=== PATIENT | female | born 1950 ===

== ENCOUNTER 2017-10-03 14:03 | Inpatient (IN) | payer OTHER ==
[~2017-10-03] VITALS: Ht 152.4 cm; Wt 68.0 kg
[2017-10-03] MEDS ORDERED: BUSP15TA3 PO (14:25)
[2017-10-03] MEDS ORDERED: BUPR-96 PO (14:25)
[2017-10-03] MEDS ORDERED: METOPROLOL (14:25)
[2017-10-03] MEDS ORDERED: MIRT15TA PO (14:25)
[2017-10-03 14:57] LABS: BASOPHILS # (AUTO) 0.1 K/uL (0.0-8.0); BASOPHILS % (AUTO) 1.1 % (0.0-2.0); EOSINOPHILS % (AUTO) 0.1 % (0.0-7.0); HEMATOCRIT 41.9 % (31.2-41.9); HEMOGLOBIN 14.3 g/dL (10.9-14.3); LYMPHOCYTES # (AUTO) 2.2 K/uL (20.0-40.0); LYMPHOCYTES % (AUTO) 28.6 % (20.5-51.5); MEAN CORPUSCULAR HGB CONC 34 g/dL (32.3-35.6); MEAN CORPUSCULAR VOLUME 96.3 fL (75.5-95.3); MONOCYTES # (AUTO) 0.4 K/uL (2.0-10.0); MONOCYTES % (AUTO) 5.3 % (0.0-11.0); NEUTROPHILS % (AUTO) 64.9 % (38.5-71.5); PLATELET COUNT (AUTO) 269 K/uL (179-408); RED BLOOD CELL COUNT(AUTO) 4.35 MIL/uL (3.63-4.92); WHITE BLOOD COUNT (AUTO) 7.7 K/uL (3.8-11.8)
[2017-10-03 15:00] LABS: *BILIRUBIN,URIN NEGATIVE (NEGATIVE); *BLOOD, URINE Trace-intact (NEGATIVE); *CLARITY,URINE SLIGHTLY CLOUDY (CLEAR); *COLOR,URINE DARK YELLOW (YELLOW); *KETONES,URINE TRACE (NEGATIVE); *PROTEIN,URINE 1+ (NEGATIVE); *UROBILINOGEN,URINE 0.2 E.U./dl (NORMAL); LEUKOCYTE ESTERASE ,URINE 1+ (NEGATIVE); NITRITE, URINE NEGATIVE (NEGATIVE); UGLUCOSE NEGATIVE (NEGATIVE)
[2017-10-03 15:07] LABS: CARBON DIOXIDE 26 mmol/L (21-32); CHLORIDE 103 mmol/L (98-107); CREATININE 1.2 mg/dL (0.6-1.3); GLUCOSE 113 mg/dL (74-106); POTASSIUM 4.4 mmol/L (3.5-5.1); UREA NITROGEN, BLOOD 18 mg/dL (7-18)
[2017-10-03 15:09] LABS: RBC,URINE 0-3 /HPF (0-3)
[2017-10-03 15:10] LABS: BACTERIA,URINE NONE SEEN /HPF (NONE SEEN); SQUAMOUS EPITHELIAL CELL,UR FEW /HPF (NONE SEEN)
[2017-10-03 15:10] LABS: ETHANOL < 3 MG/DL (0-0)
[2017-10-03 15:11] LABS: CALCIUM OXALATE CRYSTALS,UR MODERATE /HPF (NONE SEEN); MUCUS,URINE FEW /LPF (0-FEW)
[2017-10-03 15:13] LABS: ALANINE AMINOTRANSFERASE 19 U/L (14-59); ALKALINE PHOSPHATASE 95 U/L (50-136); ASPARTATE AMINOTRANSFERASE 16 U/L (15-37); BILIRUBIN,DIRECT 0.1 mg/dL (0.0-0.2); BILIRUBIN,TOTAL 0.5 mg/dL (0.2-1.0); TOTAL PROTEIN, SERUM 7.9 g/dL (6.4-8.2)
[2017-10-03 15:18] LABS: *AMPHETAMINE, URINE NEGATIVE (NEGATIVE); *BARBITURATE, URINE POSITIVE (NEGATIVE); *CANNABINOID, URINE NEGATIVE (NEGATIVE); *COCCAINE, URINE NEGATIVE (NEGATIVE); *OPIATE, URINE NEGATIVE (NEGATIVE); *PHENCYCLIDINE SCREEN,URINE NEGATIVE (NEGATIVE)
[2017-10-03 15:33] LABS: THYROID STIMULATING HORMONE 3.589 mIU/mL (0.358-3.740)
[2017-10-03] MEDS ORDERED: TEMAZEPAM 7.5 MG CAPSULE PO PRN (17:15)
[2017-10-03] MEDS ORDERED: MAGNESIUM HYDROXIDE 30 ML LIQUID UDC PO PRN (17:15)
[2017-10-03] MEDS ORDERED: MAG HYDROX/AL HYDROX/SIMETH 30 ML LIQUID UDC PO PRN (17:15)
[2017-10-03 19:00] VITALS: BP 147/81
[2017-10-03] MEDS: METOPROLOL TARTRATE 25 MG TABLET PO SCH (20:27)
[2017-10-03] MEDS: LORAZEPAM 0.5 MG TABLET PO PRN (20:39)
[2017-10-03 20:43] VITALS: BP 150/64
[2017-10-03] MEDS: VERAPAMIL 40 MG TABLET PO SCH (20:46)
[2017-10-04 07:30] VITALS: BP 106/55
[2017-10-04] MEDS: METOPROLOL TARTRATE 25 MG TABLET PO SCH ×2 (08:43→20:23)
[2017-10-04] MEDS: CEPHALEXIN MONOHYDRATE 500 MG CAPSULE PO SCH ×2 (11:53→20:20)
[2017-10-04] MEDS: LORAZEPAM 0.5 MG TABLET PO PRN (12:40)
[2017-10-04] MEDS: busPIRone 10 MG TABLET PO SCH ×2 (13:34→16:39)
[2017-10-04] MEDS: buPROPion XL 150 MG TAB.SR.24H PO SCH (13:34)
[2017-10-04] MEDS: FLUOXETINE HCL 20 MG CAPSULE PO SCH (13:34)
[2017-10-04] MEDS: HYDROCORTISONE 1% OINT 28.35 GM TUBE TOP SCH ×2 (15:00→20:26)
[2017-10-04] MEDS ORDERED: diphenhydrAMINE 1% CREAM 28.3 GM TUBE TP PRN (15:00)
[2017-10-04 15:50] VITALS: BP 94/59
[2017-10-04] MEDS: LORATADINE 10 MG TABLET PO SCH (17:32)
[2017-10-04] MEDS: ASPIRIN EC 81 MG TABLET.DR PO SCH (19:12)
[2017-10-04 20:00] VITALS: BP 104/68
[2017-10-04] MEDS: ATORVASTATIN 10 MG TABLET PO SCH (20:20)
[2017-10-04] MEDS: VERAPAMIL 40 MG TABLET PO SCH (20:23)
[2017-10-04] MEDS ORDERED: MIRTAZAPINE 15 MG TABLET PO SCH (21:00)
[2017-10-05 07:30] VITALS: BP 95/60
[2017-10-05] MEDS: buPROPion XL 150 MG TAB.SR.24H PO SCH (08:34)
[2017-10-05] MEDS: ASPIRIN EC 81 MG TABLET.DR PO SCH (08:34)
[2017-10-05] MEDS: CEPHALEXIN MONOHYDRATE 500 MG CAPSULE PO SCH (08:35)
[2017-10-05] MEDS: METOPROLOL TARTRATE 25 MG TABLET PO SCH (08:35)
[2017-10-05] MEDS: LORATADINE 10 MG TABLET PO SCH (08:35)
[2017-10-05] MEDS: busPIRone 10 MG TABLET PO SCH ×3 (08:36→16:35)
[2017-10-05] MEDS: HYDROCORTISONE 1% OINT 28.35 GM TUBE TOP SCH ×2 (08:36→20:54)
[2017-10-05] MEDS: FLUOXETINE HCL 20 MG CAPSULE PO SCH (12:03)
[2017-10-05 15:05] VITALS: BP 125/82
[2017-10-05] MEDS ORDERED: LORAZEPAM 0.5 MG TABLET PO PRN ×2 (16:30→22:30)
[2017-10-05 20:00] VITALS: BP 125/68
[2017-10-05] MEDS: VERAPAMIL 40 MG TABLET PO SCH (20:55)
[2017-10-05] MEDS: MIRTAZAPINE 15 MG TABLET PO SCH (20:56)
[2017-10-05] MEDS: ATORVASTATIN 10 MG TABLET PO SCH (20:56)
[2017-10-06 07:30] VITALS: BP 108/58
[2017-10-06] MEDS: busPIRone 10 MG TABLET PO SCH ×3 (08:42→16:54)
[2017-10-06] MEDS: ASPIRIN EC 81 MG TABLET.DR PO SCH (08:42)
[2017-10-06] MEDS: LORATADINE 10 MG TABLET PO SCH (08:44)
[2017-10-06] MEDS: buPROPion XL 150 MG TAB.SR.24H PO SCH (08:44)
[2017-10-06] MEDS: HYDROCORTISONE 1% OINT 28.35 GM TUBE TOP SCH ×2 (09:00→20:59)
[2017-10-06] MEDS: FLUOXETINE HCL 20 MG CAPSULE PO SCH (12:15)
[2017-10-06 14:35] LABS: BASOPHILS # (AUTO) 0.1 K/uL (0.0-8.0); BASOPHILS % (AUTO) 1.3 % (0.0-2.0); EOSINOPHILS % (AUTO) 0.4 % (0.0-7.0); HEMATOCRIT 40.4 % (31.2-41.9); LYMPHOCYTES # (AUTO) 2.2 K/uL (20.0-40.0); LYMPHOCYTES % (AUTO) 29.7 % (20.5-51.5); MEAN CORPUSCULAR HEMOGLOBIN 33.3 uug (24.7-32.8); MEAN CORPUSCULAR HGB CONC 35 g/dL (32.3-35.6); MEAN CORPUSCULAR VOLUME 95.9 fL (75.5-95.3); MONOCYTES # (AUTO) 0.5 K/uL (2.0-10.0); MONOCYTES % (AUTO) 7.1 % (0.0-11.0); NEUTROPHILS # (AUTO) 4.5 K/uL (1.8-8.9); NEUTROPHILS % (AUTO) 61.5 % (38.5-71.5); PLATELET COUNT (AUTO) 273 K/uL (179-408); RED BLOOD CELL COUNT(AUTO) 4.21 MIL/uL (3.63-4.92); WHITE BLOOD COUNT (AUTO) 7.3 K/uL (3.8-11.8)
[2017-10-06 15:22] LABS: CREATININE 1.3 mg/dL (0.6-1.3); MAGNESIUM 1.9 mg/dL (1.8-2.4); PHOSPHOROUS 3.4 mg/dL (2.5-4.9); POTASSIUM 4.3 mmol/L (3.5-5.1)
[2017-10-06 16:40] VITALS: BP 136/66
[2017-10-06 19:30] VITALS: BP 131/73
[2017-10-06] MEDS: CODEINE/BUTA/APAP/CAFF 1 CAP CAPSULE PO PRN (19:49)
[2017-10-06] MEDS: ATORVASTATIN 10 MG TABLET PO SCH (20:53)
[2017-10-06] MEDS: MIRTAZAPINE 15 MG TABLET PO SCH (20:53)
[2017-10-06] MEDS: VERAPAMIL 40 MG TABLET PO SCH (20:54)
[2017-10-07 07:30] VITALS: BP 111/75
[2017-10-07] MEDS: LORATADINE 10 MG TABLET PO SCH (08:17)
[2017-10-07] MEDS: busPIRone 10 MG TABLET PO SCH ×3 (08:17→16:34)
[2017-10-07] MEDS: buPROPion XL 150 MG TAB.SR.24H PO SCH (08:17)
[2017-10-07] MEDS: HYDROCORTISONE 1% OINT 28.35 GM TUBE TOP SCH ×2 (08:19→20:43)
[2017-10-07] MEDS: FLUOXETINE HCL 20 MG CAPSULE PO SCH (12:10)
[2017-10-07 16:34] VITALS: BP 125/72
[2017-10-07 19:38] VITALS: BP 121/75
[2017-10-07] MEDS: MIRTAZAPINE 15 MG TABLET PO SCH (21:44)
[2017-10-07] MEDS: ATORVASTATIN 10 MG TABLET PO SCH (21:44)
[2017-10-07] MEDS: VERAPAMIL 40 MG TABLET PO SCH (21:45)
[2017-10-08] MEDS: CODEINE/BUTA/APAP/CAFF 1 CAP CAPSULE PO PRN ×3 (05:42→21:26)
[2017-10-08 07:30] VITALS: BP 134/84
[2017-10-08] MEDS: buPROPion XL 150 MG TAB.SR.24H PO SCH (08:19)
[2017-10-08] MEDS: busPIRone 10 MG TABLET PO SCH ×3 (08:19→17:41)
[2017-10-08] MEDS: LORATADINE 10 MG TABLET PO SCH (08:19)
[2017-10-08] MEDS: HYDROCORTISONE 1% OINT 28.35 GM TUBE TOP SCH ×2 (08:24→21:19)
[2017-10-08] MEDS: FLUOXETINE HCL 20 MG CAPSULE PO SCH (13:25)
[2017-10-08 16:18] VITALS: BP 133/64
[2017-10-08 20:09] VITALS: BP 146/68
[2017-10-08] MEDS: ATORVASTATIN 10 MG TABLET PO SCH (21:19)
[2017-10-08] MEDS: MIRTAZAPINE 15 MG TABLET PO SCH (21:19)
[2017-10-08] MEDS: VERAPAMIL 40 MG TABLET PO SCH (21:19)
[2017-10-09 07:30] VITALS: BP 136/71
[2017-10-09] MEDS: HYDROCORTISONE 1% OINT 28.35 GM TUBE TOP SCH (09:00)
[2017-10-09] MEDS: buPROPion XL 150 MG TAB.SR.24H PO SCH (09:10)
[2017-10-09] MEDS: LORATADINE 10 MG TABLET PO SCH (09:10)
[2017-10-09] MEDS: busPIRone 10 MG TABLET PO SCH ×2 (09:11→12:28)
[2017-10-09] MEDS: FLUOXETINE HCL 20 MG CAPSULE PO SCH (12:28)
== END 2017-10-09 14:05 | disposition home or self-care (01) | DRG 885 ==
LOC: ER 14:08 → GPS 16:25
PROVIDERS: ADMIT Psychiatry & Neurology Psychosomatic Medicine; ATTEND Internal Medicine
DX: F33.3 Major depressive disorder, recurrent, severe with psychotic symptoms (principal); N39.0 Urinary tract infection, site not specified; F41.0 Panic disorder [episodic paroxysmal anxiety]; Z88.6 Allergy status to analgesic agent; Z91.041 Radiographic dye allergy status; G43.909 Migraine, unspecified, not intractable, without status migrainosus; Z87.891 Personal history of nicotine dependence; G89.29 Other chronic pain; G58.9 Mononeuropathy, unspecified; E78.5 Hyperlipidemia, unspecified; E67.8 Other specified hyperalimentation; E66.3 Overweight; Z68.29 Body mass index [BMI] 29.0-29.9, adult; Z87.19 Personal history of other diseases of the digestive system; I11.9 Hypertensive heart disease without heart failure; I51.9 Heart disease, unspecified; J30.9 Allergic rhinitis, unspecified; Z86.39 Personal history of other endocrine, nutritional and metabolic disease; M54.2 Cervicalgia; R21 Rash and other nonspecific skin eruption
CPT/HCPCS: 36415; 70030-TC; 71045; 80307; 83735; 84100; 84443; 85025; 87086; 93005; 93307; A4663; G0480

== ENCOUNTER 2018-10-30 15:16 | Inpatient (IN) | payer OTHER ==
[~2018-10-30] VITALS: Ht 152.4 cm; Wt 68.0 kg
[~2018-10-30 15:16] MED LIST: BUPR-96 PO; BUSP15TA3 PO; METOPROLOL; MIRT15TA PO
[2018-10-30] MEDS ORDERED: VERA180C2 PO (15:58)
[2018-10-30] MEDS ORDERED: METOPROLOL (15:58)
[2018-10-30] MEDS ORDERED: CODE1CAP24 PO (15:58)
[2018-10-30] MEDS ORDERED: SUMA100T PO (15:58)
[2018-10-30] MEDS ORDERED: FLUO20CA36 PO (15:58)
[2018-10-30 17:15] LABS: BASOPHILS # (AUTO) 0.1 K/uL (0.0-8.0); BASOPHILS % (AUTO) 1.3 % (0.0-2.0); EOSINOPHILS % (AUTO) 0.4 % (0.0-7.0); HEMOGLOBIN 13.5 g/dL (10.9-14.3); LYMPHOCYTES # (AUTO) 2.2 K/uL (20.0-40.0); LYMPHOCYTES % (AUTO) 31.1 % (20.5-51.5); MEAN CORPUSCULAR HEMOGLOBIN 32.7 uug (24.7-32.8); MEAN CORPUSCULAR HGB CONC 34 g/dL (32.3-35.6); MEAN CORPUSCULAR VOLUME 97.1 fL (75.5-95.3); MONOCYTES # (AUTO) 0.5 K/uL (2.0-10.0); NEUTROPHILS # (AUTO) 4.2 K/uL (1.8-8.9); NEUTROPHILS % (AUTO) 60.2 % (38.5-71.5); PLATELET COUNT (AUTO) 235 K/uL (179-408); RED BLOOD CELL COUNT(AUTO) 4.12 MIL/uL (3.63-4.92)
[2018-10-30 17:23] LABS: *BILIRUBIN,URIN NEGATIVE (NEGATIVE); *BLOOD, URINE 1+ (NEGATIVE); *CLARITY,URINE CLEAR (CLEAR); *COLOR,URINE LIGHT YELLOW (YELLOW); *KETONES,URINE NEGATIVE (NEGATIVE); *UROBILINOGEN,URINE 0.2 E.U./dl (NORMAL); LEUKOCYTE ESTERASE ,URINE NEGATIVE (NEGATIVE); NITRITE, URINE NEGATIVE (NEGATIVE); PH,URINE 6.5 (5.0-8.0); UGLUCOSE NEGATIVE (NEGATIVE)
[2018-10-30 17:24] LABS: CARBON DIOXIDE 28 mmol/L (21-32); CHLORIDE 104 mmol/L (98-107); CREATININE 1.1 mg/dL (0.6-1.3); GLUCOSE 112 mg/dL (74-106); POTASSIUM 4.1 mmol/L (3.5-5.1); UREA NITROGEN, BLOOD 18 mg/dL (7-18)
[2018-10-30 17:38] LABS: ALANINE AMINOTRANSFERASE 17 U/L (14-59); ALKALINE PHOSPHATASE 83 U/L (50-136); ASPARTATE AMINOTRANSFERASE 23 U/L (15-37); BILIRUBIN,DIRECT 0.1 mg/dL (0.0-0.2); BILIRUBIN,TOTAL 0.2 mg/dL (0.2-1.0); TOTAL PROTEIN, SERUM 7.8 g/dL (6.4-8.2)
[2018-10-30 17:39] LABS: *AMPHETAMINE, URINE NEGATIVE (NEGATIVE); *BARBITURATE, URINE POSITIVE (NEGATIVE); *CANNABINOID, URINE NEGATIVE (NEGATIVE); *COCCAINE, URINE NEGATIVE (NEGATIVE); *OPIATE, URINE NEGATIVE (NEGATIVE); *PHENCYCLIDINE SCREEN,URINE NEGATIVE (NEGATIVE)
[2018-10-30 17:39] LABS: ACETAMINOPHEN < 2.0 ug/mL (10-30)
[2018-10-30 17:40] LABS: ETHANOL < 3 MG/DL (0-0)
[2018-10-30 17:45] LABS: SQUAMOUS EPITHELIAL CELL,UR FEW /HPF (NONE SEEN); WBC,URINE 0-3 /HPF (0-3)
[2018-10-30 18:01] LABS: THYROID STIMULATING HORMONE 1.555 mIU/mL (0.358-3.740)
--- NOTE | 2018-10-30 21:00 | NUR ---
HAND OFF AND SBAR GIVEN TO CRISSY MERCADO PT WILL BE ADMITTED TO [facility] ADMISSION FOR DEPRESSION STATES: HER MEDS ARE NOT WORKING UNDER DR GARCIA/GUNJAN PT NAD, SITTING ON ROOM CALM AND COMPLIANT AOX3
--- NOTE | 2018-10-30 21:16 | NUR ---
Patient is in the room, arrived in a wheelchair.
--- NOTE | 2018-10-30 21:17 | NUR ---
PT WAS TRANSPORTED VIA WHEELCHAIR ACCOMPANIED BY ER WASTEWATER TREATMENT PLANT INSTRUCTOR DENIES SI/HI AT THIS TIME, PT NAD PT BELONGINGS CONFIRMED AND SIGNED BY PT AND RN COPY ON CHART
[2018-10-30 21:27] VITALS: BP 136/56
[2018-10-30] MEDS ORDERED: TEMAZEPAM 7.5 MG CAPSULE PO PRN (21:30)
[2018-10-30] MEDS ORDERED: MAGNESIUM HYDROXIDE 30 ML LIQUID UDC PO PRN (21:30)
[2018-10-30] MEDS ORDERED: MAG HYDROX/AL HYDROX/SIMETH 30 ML LIQUID UDC PO PRN (21:30)
--- NOTE | 2018-10-31 | NUR ---
RECD PT IN BED, APPEARS ANXIOUS, REQUESTING MEDICATION TO CALM HER AND BE ABLE TO REST AND SLEEP, ATIVAN 1 MG GIVEN ORDERED. NEEDS ATTENDED TO. SAFETY PRECAUTIONS OBSERVED AND MONITORED. FREQUENT VISUAL CHECKS AND MONITORING DONE. HALFWAY ASSESSMENT COMPLETED.
[2018-10-31] MEDS: LORAZEPAM 1 MG TABLET PO PRN ×2 (00:14→17:41)
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
--- NOTE | 2018-10-31 02:00 | NUR ---
RESTING QUIETLY, NO VOICED COMPLAINTS, KEPT WARM AND COMFORTABLE.
--- NOTE | 2018-10-31 04:00 | NUR ---
UP TO BR, VOIDED FREELY WELL. WENT BACK TO SLEEP. NOTHING UNUSUAL NOTED.PT"S VALUABLES INVENTORIED , WILL BE PLACED IN THE SAFE, DOCUMENTED PROPERLY.
[2018-10-31] MEDS ORDERED: CODEINE PO PRN (07:45)
[2018-10-31] MEDS ORDERED: [UNRECOGNIZED DRUG - OTHER] PO PRN (07:45)
[2018-10-31] MEDS ORDERED: ACETAMIN PO PRN (07:45)
[2018-10-31] MEDS ORDERED: SUMATRIPTAN SUCCINATE 100 MG PO SCH (07:45)
[2018-10-31] MEDS ORDERED: BUTALBIT PO PRN (07:45)
[2018-10-31] MEDS ORDERED: CAFF PO PRN (07:45)
[2018-10-31 08:00] VITALS: BP 117/52
[2018-10-31] MEDS ORDERED: MAGNESIUM CITRATE 296 ML BOTTLE PO ONE (09:00)
[2018-10-31] MEDS ORDERED: VERAPAMIL HCL 180 MG PO SCH (09:00)
[2018-10-31] MEDS ORDERED: METOPROLOL TARTRATE 25 MG TABLET PO SCH (09:00)
[2018-10-31] MEDS: ASPIRIN 81 MG TAB.CHEW GT SCH (09:20)
[2018-10-31] MEDS: CHOLECALCIFEROL 1,000 UNIT TABLET PO SCH (09:20)
[2018-10-31] MEDS: CYANOCOBALAMIN 1,000 MCG TABLET PO SCH (09:20)
[2018-10-31] MEDS: SUMATRIPTAN SUCCINATE 50 MG TABLET PO PRN (09:31)
[2018-10-31] MEDS: METOPROLOL SUCCINATE XL 25 MG TAB.SR.24H PO SCH (09:38)
--- NOTE | 2018-10-31 09:39 | NUR ---
PATIENT AO 4, ON RA , NO DISTRESS SPOKE WITH THIS AM AND SHOWED HER LIST OF HOME MEDS THAT PATIENT FOUND. DR RG TOLD ME WHAT MEDICATIONS TO CONT. COPY OF HER HOME MED LIST IS IN THE CHART.
[2018-10-31 12:13] VITALS: BP 117/52
[2018-10-31 15:56] VITALS: BP 129/63
[2018-10-31] MEDS: VERAPAMIL 80 MG TABLET PO SCH (20:34)
[2018-10-31] MEDS: NIACIN 500 MG TABLET PO SCH (20:35)
[2018-10-31 20:46] VITALS: BP 103/57
[2018-10-31] MEDS ORDERED: NIACIN 500 MG TABLET.SA PO SCH (21:00)
[2018-10-31] MEDS ORDERED: VERAPAMIL HCL PO SCH (21:00)
[2018-11-01] MEDS: SUMATRIPTAN SUCCINATE 50 MG TABLET PO PRN (06:28)
--- NOTE | 2018-11-01 06:52 | NUR ---
PATIENT SLEPT ABOUT 7 HRS DURING THE SHIFT. NO BEHAVIORAL ISSUES NOTED.NO SIGNS OF SUICIDAL IDEATION NOTED. IMITREX ADMINISTERED ON C/O MIGRAINE
[2018-11-01 07:30] VITALS: BP 135/56
[2018-11-01] MEDS: ASPIRIN 81 MG TAB.CHEW GT SCH (09:06)
[2018-11-01] MEDS: CYANOCOBALAMIN 1,000 MCG TABLET PO SCH (09:06)
[2018-11-01] MEDS: CHOLECALCIFEROL 1,000 UNIT TABLET PO SCH (09:06)
[2018-11-01] MEDS: METOPROLOL SUCCINATE XL 25 MG TAB.SR.24H PO SCH (09:07)
[2018-11-01] MEDS: FLUOXETINE HCL 20 MG CAPSULE PO SCH (09:07)
[2018-11-01] MEDS: CLONAZEPAM 0.5 MG TABLET PO SCH ×3 (09:11→16:41)
[2018-11-01 17:00] VITALS: BP 108/48
[2018-11-01 20:00] VITALS: BP 122/66
[2018-11-01] MEDS: VERAPAMIL 80 MG TABLET PO SCH (20:16)
[2018-11-01] MEDS: NIACIN 500 MG TABLET PO SCH (20:16)
[2018-11-02 07:30] VITALS: BP 97/50
[2018-11-02] MEDS: SUMATRIPTAN SUCCINATE 50 MG TABLET PO PRN (08:47)
[2018-11-02] MEDS: CHOLECALCIFEROL 1,000 UNIT TABLET PO SCH (08:48)
[2018-11-02] MEDS: ASPIRIN 81 MG TAB.CHEW GT SCH (08:48)
[2018-11-02] MEDS: CLONAZEPAM 0.5 MG TABLET PO SCH ×4 (08:48→21:06)
[2018-11-02] MEDS: CYANOCOBALAMIN 1,000 MCG TABLET PO SCH (08:48)
[2018-11-02] MEDS: FLUOXETINE HCL 20 MG CAPSULE PO SCH (08:49)
[2018-11-02] MEDS: METOPROLOL SUCCINATE XL 25 MG TAB.SR.24H PO SCH (08:50)
--- NOTE | 2018-11-02 11:19 | NUR ---
UR Note: Clay Processing Factory Worker faxed clinical information to assigned Development Technician Nathaniel vergara at [facility] ( Ext [phone]; ). Clay Processing Factory Worker updated Development Technician provided verbal clinicals. Authorization no. provided: [id number]. Next utilization review scheduled for 11/03/18.
--- NOTE | 2018-11-02 15:11 | NUR ---
Discharge Note: Patient is a 68 year old female who currently resides at home [[address] [place] [address]; Ph. [phone]; ]. Per patient, she would like to return home upon discharge. Patient's main support is her friend Anel Godoy [[phone]] who will be able to help patient upon discharge. Sales And Leasing Agent will continue to meet with patient, and collaborate with patient and MD on a safe and proper discharge plan.
[2018-11-02 16:17] VITALS: BP 102/66
[2018-11-02 20:00] VITALS: BP 142/73
[2018-11-02] MEDS: VERAPAMIL 80 MG TABLET PO SCH (20:21)
[2018-11-02] MEDS: NIACIN 500 MG TABLET PO SCH (20:21)
[2018-11-03] MEDS ORDERED: TEMAZEPAM 7.5 MG CAPSULE PO PRN (07:45)
[2018-11-03 07:52] VITALS: BP 112/52
[2018-11-03] MEDS: FLUOXETINE HCL 20 MG CAPSULE PO SCH ×3 (09:00→18:55)
[2018-11-03] MEDS: CHOLECALCIFEROL 1,000 UNIT TABLET PO SCH ×2 (09:00→18:57)
[2018-11-03] MEDS: ASPIRIN 81 MG TAB.CHEW PO SCH ×2 (09:00→18:57)
[2018-11-03] MEDS: CYANOCOBALAMIN 1,000 MCG TABLET PO SCH ×2 (09:00→18:57)
[2018-11-03] MEDS: METOPROLOL SUCCINATE XL 25 MG TAB.SR.24H PO SCH (09:00)
[2018-11-03 15:10] VITALS: BP 116/60
--- NOTE | 2018-11-03 15:43 | NUR ---
UR Note: Director Of Recruitment And Admissions faxed clinical information to assigned Survey Research Manager Brad vergara at [facility] ( Ext [phone]; ). Director Of Recruitment And Admissions updated Survey Research Manager provided verbal clinicals. Next utilization review scheduled for 11/04/18. Per Brad, a sesg-fu-puty evaluation is scheduled for tomorrow, November 04, 2018 before 5:00pm at [phone]. made aware.
[2018-11-03] MEDS: VERAPAMIL 80 MG TABLET PO SCH (20:10)
[2018-11-03 20:11] VITALS: BP 109/53
[2018-11-03] MEDS: SUMATRIPTAN SUCCINATE 50 MG TABLET PO PRN (20:28)
[2018-11-03] MEDS: CLONAZEPAM 0.5 MG TABLET PO SCH (21:00)
[2018-11-03] MEDS ORDERED: TRAZODONE 50 MG TABLET PO ONE (22:00)
[2018-11-04] MEDS: CHOLECALCIFEROL 1,000 UNIT TABLET PO SCH (08:59)
[2018-11-04] MEDS: METOPROLOL SUCCINATE XL 25 MG TAB.SR.24H PO SCH (09:00)
[2018-11-04] MEDS: CYANOCOBALAMIN 1,000 MCG TABLET PO SCH (09:03)
[2018-11-04] MEDS: ASPIRIN 81 MG TAB.CHEW PO SCH (09:03)
[2018-11-04 09:35] VITALS: BP 102/49
[2018-11-04] MEDS ORDERED: FLUOXETINE HCL 20 MG CAPSULE PO ONE (10:15)
[2018-11-04] MEDS: FLUOXETINE HCL 20 MG CAPSULE PO SCH (13:00)
--- NOTE | 2018-11-04 13:23 | NUR ---
UR Note: Hot Metal Car Operator faxed clinical information to assigned Actuarial Technician Brad vergara at [facility] ( Ext [phone]; ). Received fax confirmation. Hot Metal Car Operator updated Actuarial Technician provided verbal clinicals. A levq-ma-ucwj evaluation is scheduled for today before 5:00pm at [phone]. made reminded.
[2018-11-04] MEDS: LORAZEPAM 1 MG TABLET PO PRN (15:56)
--- NOTE | 2018-11-04 16:06 | NUR ---
Psychotherapy Note Patient requested to speak to this clinician and so this caption writer met with patient in a private area on [facility]. Patient presents with a high level of agitation and hopelessness. She is very frustrated with [facility] for not arranging TMS treatment for her. Patient did not like any of the outpatient providers that she saw as an outpatient and lists many outpatient psychiatrists. Patient's speech was pressured and difficult to interrupt. This is suggestive of hypomania. Patient got so upset regarding [place] that this clinician suggested we stop the session for today and requested that she receive her PRN medication. RN stated that she had Ativan available and pt., agreed to take this. Patient does palce many obstacles in ehr way too as she will not see a conventional therapist and only wants TMS. Will discuss medication adjustment with Dr Burroughs. Patient's level of anxiety places her at high risk for discharge. Pt. stated she wanted to file a grievance with [employer] and was given the 800 number of [phone]. Pt. was given the phone and pencil and notepad.
[2018-11-04 16:15] VITALS: BP 118/58
--- NOTE | 2018-11-04 16:16 | NUR ---
UR Note: Deck Mechanic spoke with Herb Digger Brad vergara at [facility] ( Ext [phone]] who stated per xiji-xg-zqem consultation, it was agreed that patient would be have an ECT consult prior to discharge. Deck Mechanic to follow up with [facility].
--- NOTE | 2018-11-04 18:13 | NUR ---
PATIENT IS ALERT, ORIENTED X4, VERBALLY RESPONSIVE, NO SOB, RESP EVEN NONLABORED,SKIN WARM AND DRY TO TOUCH, AMBULATORY, NO AGGRESSIVE OR COMBATIVE BEHAVIOUR NOTED, STILL NOTED WITH SAD FACIAL EXPRESSIONS, NOTED WITH ANXIOUS MOOD, ATIVAN GIVEN, EFFECTIVE, NO OTHER CHANGES NOTED.
[2018-11-04] MEDS: VERAPAMIL 80 MG TABLET PO SCH (20:10)
[2018-11-04] MEDS: CLONAZEPAM 0.5 MG TABLET PO SCH (20:53)
[2018-11-04] MEDS ORDERED: TRAZODONE 50 MG TABLET GT SCH (21:00)
[2018-11-04] MEDS ORDERED: LITHIUM CARBONATE 300 MG CAPSULE PO SCH (21:00)
[2018-11-04] MEDS ORDERED: TRAZODONE 50 MG TABLET PO SCH (21:00)
[2018-11-04 21:18] VITALS: BP 116/51
--- NOTE | 2018-11-04 23:00 | NUR ---
received to care, sitting in room, pleasant upon approach. denies SI, but remains anxious and depressed. compliant with medications and staff direction. as of 2299, she remains awake, in bed. no distress noted.
[2018-11-05] MEDS: LORAZEPAM 1 MG TABLET PO PRN (00:30)
--- NOTE | 2018-11-05 00:30 | NUR ---
remains awake. PRN ativan was given, at her request. will continue to monitor closely.
--- NOTE | 2018-11-05 06:00 | NUR ---
slept 6 hours. continues to sleep. no distress noted.
[2018-11-05] MEDS: METOPROLOL SUCCINATE XL 25 MG TAB.SR.24H PO SCH (09:00)
[2018-11-05] MEDS: FLUOXETINE HCL 20 MG CAPSULE PO SCH ×2 (09:10→12:22)
[2018-11-05] MEDS: CHOLECALCIFEROL 1,000 UNIT TABLET PO SCH (09:10)
[2018-11-05] MEDS: CYANOCOBALAMIN 1,000 MCG TABLET PO SCH (09:10)
[2018-11-05] MEDS: LITHIUM CARBONATE 300 MG CAPSULE PO SCH ×2 (09:10→20:42)
[2018-11-05] MEDS: ASPIRIN 81 MG TAB.CHEW PO SCH (09:11)
[2018-11-05 09:49] VITALS: BP 106/48
--- NOTE | 2018-11-05 12:02 | NUR ---
Social Work Note: Patient filed a Medicare Beneficiary Appeal Request on 11/04/18. Tube Coater received notice issue from [employer] and faxed all pertinent documentation back to [employer] at approximately 10:0am. Tube Coater awaiting response.
[2018-11-05 16:08] VITALS: BP 111/54
--- NOTE | 2018-11-05 16:08 | NUR ---
Gps/Senior Marketing Specialist- Report given to Bryanna Bird. Patient was well informed. Patient has valuables in the main Hospital safe. Denies any discomfort. Transfered to room #323.(as MHU overflow)
[2018-11-05 16:15] VITALS: BP 138/68
--- NOTE | 2018-11-05 19:30 | NUR ---
Received patient in bed awake A&Ox4. No SOB noted. Patient is calm at this time, no verbalization of suicidal ideation. Noted ambulatory. Safety measures observed. Will continue to monitor
[2018-11-05 19:40] VITALS: BP 134/55
[2018-11-05] MEDS: CLONAZEPAM 0.5 MG TABLET PO SCH (20:42)
[2018-11-05] MEDS: TRAZODONE 100 MG TABLET PO SCH (20:42)
[2018-11-05] MEDS: SUMATRIPTAN SUCCINATE 50 MG TABLET PO PRN (20:42)
[2018-11-05] MEDS: VERAPAMIL 80 MG TABLET PO SCH (20:43)
--- NOTE | 2018-11-06 06:38 | NUR ---
Patient slept for 6hrs. No episodes of SI. All needs attended. Will endorse accordingly
[2018-11-06 07:24] LABS: BASOPHILS # (AUTO) 0.1 K/uL (0.0-8.0); BASOPHILS % (AUTO) 0.9 % (0.0-2.0); EOSINOPHILS # (AUTO) 0.1 K/uL (0.0-0.7); EOSINOPHILS % (AUTO) 1.4 % (0.0-7.0); HEMATOCRIT 39.3 % (31.2-41.9); HEMOGLOBIN 13.2 g/dL (10.9-14.3); LYMPHOCYTES # (AUTO) 2.6 K/uL (20.0-40.0); LYMPHOCYTES % (AUTO) 41.7 % (20.5-51.5); MEAN CORPUSCULAR HEMOGLOBIN 32.8 uug (24.7-32.8); MEAN CORPUSCULAR HGB CONC 34 g/dL (32.3-35.6); MEAN CORPUSCULAR VOLUME 98.1 fL (75.5-95.3); MONOCYTES # (AUTO) 0.5 K/uL (2.0-10.0); MONOCYTES % (AUTO) 7.6 % (0.0-11.0); NEUTROPHILS % (AUTO) 48.4 % (38.5-71.5); PLATELET COUNT (AUTO) 243 K/uL (179-408); RED BLOOD CELL COUNT(AUTO) 4.01 MIL/uL (3.63-4.92); WHITE BLOOD COUNT (AUTO) 6.2 K/uL (3.8-11.8)
[2018-11-06 07:46] LABS: BILIRUBIN,TOTAL 0.2 mg/dL (0.2-1.0); MAGNESIUM 2.1 mg/dL (1.8-2.4); PHOSPHOROUS 3.6 mg/dL (2.5-4.9); TOTAL PROTEIN, SERUM 6.7 g/dL (6.4-8.2)
[2018-11-06] MEDS: CYANOCOBALAMIN 1,000 MCG TABLET PO SCH (09:36)
[2018-11-06] MEDS: LITHIUM CARBONATE 300 MG CAPSULE PO SCH ×2 (09:36→20:22)
[2018-11-06] MEDS: METOPROLOL SUCCINATE XL 25 MG TAB.SR.24H PO SCH (09:36)
[2018-11-06] MEDS: CHOLECALCIFEROL 1,000 UNIT TABLET PO SCH (09:36)
[2018-11-06] MEDS: ASPIRIN 81 MG TAB.CHEW PO SCH (09:36)
[2018-11-06] MEDS: FLUOXETINE HCL 20 MG CAPSULE PO SCH ×2 (09:37→12:47)
--- NOTE | 2018-11-06 10:50 | NUR ---
UR Note: Per Fire Prevention Bureau Captain Brad Collado at [facility] ( Ext [phone]), inpatient ECT consult is not covered through plan and patient will need to have 2 referring psychiatrists recommending ECT in order for medical group to review patient as a candidate. Per Brad, referring psychiatrists will be provided once a dc order is in place. plant production worker to follow up. Cotton Program Technician also faxed updated clinicals to assigned Fire Prevention Bureau Captain Brad vergara [facility] ( Ext 209; ).
[2018-11-06 11:45] VITALS: BP 102/50
--- NOTE | 2018-11-06 15:19 | NUR ---
UR Note: Spoke with Brad Coulter, Ui Ux Web Developer at [facility] [ EXT [phone]]. [facility] requesting referring psychiatrist- Dr. Burroughs, to provide consultation recommending patient as candidate for ECT along with a second opinion psychiatrist corroborating recommendation. made aware. Per Brad, Dr. Dooley is an approved provider by [facility] and is able to conduct second opinion consultation. Dr. Dooley made aware and agreed to see patient.
[2018-11-06 15:20] VITALS: BP 99/53
--- NOTE | 2018-11-06 15:33 | NUR ---
Social Work Note: At 15:33 this keno writer / runner reviewed status of patient's Noela case appeal [Case Control ID: [id number]] via online portal [[email or web address]], which indicated to be under "Physician Review" status. bog worker to continue to follow up with outcome of case review.
[2018-11-06] MEDS: SUMATRIPTAN SUCCINATE 50 MG TABLET PO PRN (19:05)
[2018-11-06 20:00] VITALS: BP 110/63
[2018-11-06] MEDS: TRAZODONE 100 MG TABLET PO SCH ×2 (20:22→20:32)
[2018-11-06] MEDS: CLONAZEPAM 0.5 MG TABLET PO SCH (20:22)
[2018-11-06] MEDS: VERAPAMIL 80 MG TABLET PO SCH (20:22)
[2018-11-07 07:37] VITALS: BP 104/40
[2018-11-07] MEDS: METOPROLOL SUCCINATE XL 25 MG TAB.SR.24H PO SCH (09:00)
[2018-11-07] MEDS: ASPIRIN 81 MG TAB.CHEW PO SCH (11:25)
[2018-11-07] MEDS: CYANOCOBALAMIN 1,000 MCG TABLET PO SCH (11:26)
[2018-11-07] MEDS: CHOLECALCIFEROL 1,000 UNIT TABLET PO SCH (11:26)
[2018-11-07] MEDS: FLUOXETINE HCL 20 MG CAPSULE PO SCH ×3 (11:26→16:31)
[2018-11-07] MEDS: LITHIUM CARBONATE 300 MG CAPSULE PO SCH ×2 (11:26→20:38)
--- NOTE | 2018-11-07 12:24 | NUR ---
BALL RACKER WAS INFORMED BY NURSE THAT SHE RECEIVED A PHONE CALL YESTERDAY FROM [facility] STATING PT LOST HER APPEAL, BUT GAVE NO MORE INFORMATION AFTER THAT. REQUESTED TO SPEAK TO VISCOSE CELLAR CHARGE HAND. NURSE INFORMED VISCOSE CELLAR CHARGE HAND FROM [facility] THAT MENTAL HEALTH GENERATOR REPAIRER TANIKA HAD GONE FOR THE DAY AND TRANSFERRED CALL TO 3RD FLOOR [facility] TO SPEAK TO VISCOSE CELLAR CHARGE HAND TANGELA. CALL WAS RETURNED TO MENTAL HEALTH FROM CHARGE NURSE EDIS STATING IT IS AN ISSUE FOR MENTAL HEALTH. NURSE INFORMED VISCOSE CELLAR CHARGE HAND FROM [facility] TO PLEASE CALL BACK ON FRIDAY TO FOLLOW UP WITH TANIKA. BALL RACKER SPOKE TO TANGELA TODAY REGARDING POSSIBLE DENIAL OF APPEAL BY [facility]. TANGELA AND SPOKE TO PATIENT. CALLED AND SPOKE TO NABIL, U DIRECTOR. ALSO SPOKE TO JOSI, SPOON MAKER. JOSI INFORMED THAT PT'S STAY IS APPROVED UNTIL FRIDAY PENDING ECT CONSULT BY DR. ZHONG.
[2018-11-07 13:57] VITALS: BP 115/54
[2018-11-07 19:48] VITALS: BP 109/54
[2018-11-07] MEDS: CLONAZEPAM 0.5 MG TABLET PO SCH (21:00)
[2018-11-07] MEDS: risperiDONE 0.25 MG TABLET PO SCH (21:38)
[2018-11-07] MEDS: SUMATRIPTAN SUCCINATE 50 MG TABLET PO PRN (22:26)
[2018-11-07] MEDS: VERAPAMIL 80 MG TABLET PO SCH (23:20)
[2018-11-07] MEDS: TRAZODONE 50 MG TABLET PO SCH (23:20)
--- NOTE | 2018-11-08 06:03 | NUR ---
Patient slept for 6hrs. Denies SI. Ensured safety and comfort. Attended all needs. Will endorse accordingly
[2018-11-08 06:15] VITALS: BP 108/45
--- NOTE | 2018-11-08 07:30 | NUR ---
RECEIVED PT RESTING COMFORTABLY IN BED. PT DENIES PAIN AT THIS TIME. PT AWAKE, ALERT AND ORIENTED X 3. NO ACUTE DISTRESS NOTED. NO SOB NOTED. PT IS PLEASANT AND COOPERATIVE. PT DENIES SUICIDAL IDEATION AT THIS TIME. WILL CONTINUE TO MONITOR.
[2018-11-08 08:12] VITALS: BP 102/52
[2018-11-08] MEDS: CHOLECALCIFEROL 1,000 UNIT TABLET PO SCH (08:54)
[2018-11-08] MEDS: LITHIUM CARBONATE 300 MG CAPSULE PO SCH ×2 (08:55→20:47)
[2018-11-08] MEDS: FLUOXETINE HCL 20 MG CAPSULE PO SCH ×2 (08:55→13:52)
[2018-11-08] MEDS: METOPROLOL SUCCINATE XL 25 MG TAB.SR.24H PO SCH (08:55)
[2018-11-08] MEDS: ASPIRIN 81 MG TAB.CHEW PO SCH (08:56)
[2018-11-08] MEDS: CYANOCOBALAMIN 1,000 MCG TABLET PO SCH (08:56)
--- NOTE | 2018-11-08 12:15 | NUR ---
PT RESTING COMFORTABLY IN BED. NO SIGNS OF ACUTE DISTRESS OR SOB NOTED. PT AWAKE, ALERT AND ORIENTED X 3. PT IS MEDICATION COMPLIANT. PT IS COOPERATIVE. PT DENIES PAIN AT THIS TIME. PT DENIES ANY SUICIDAL IDEATION AND/OR INTENT AT THIS TIME. CALL LIGHT WITHIN REACH. BED LOCKED IN LOW POSITION. WILL CONTINUE TO MONITOR.
[2018-11-08 12:25] VITALS: BP 128/59
[2018-11-08 15:10] VITALS: BP 120/55
[2018-11-08 16:00] VITALS: BP 138/55
--- NOTE | 2018-11-08 18:30 | NUR ---
PT TOOK A SHOWER. PT AWAKE, ALERT AND ORIENTED X3. SAFETY MEASURES IMPLEMENTED. PT DENIES PAIN AT THIS TIME. PT DENIES SUICIDAL IDEATION AND INTENT AT THIS TIME. PT IS COOPERATIVE AND PLEASANT. CALL LIGHT WITHIN REACH. NO ACUTE DISTRESS NOTED. NO SOB NOTED. WILL GIVE REPORT ACCORDINGLY.
[2018-11-08 19:43] VITALS: BP 117/62
[2018-11-08] MEDS: VERAPAMIL 80 MG TABLET PO SCH (20:46)
[2018-11-08] MEDS: TRAZODONE 50 MG TABLET PO SCH (20:47)
[2018-11-08] MEDS: risperiDONE 0.25 MG TABLET PO SCH (20:47)
[2018-11-08] MEDS: CLONAZEPAM 0.5 MG TABLET PO SCH (20:47)
--- NOTE | 2018-11-09 06:44 | NUR ---
Patient slept 7 hours last night. No SI ideation or plan, patient was very pleasant, no Major depressive episode. Patient is in no apprent distress, safety protocols monitored. Endorsed to AM shift.
--- NOTE | 2018-11-09 07:43 | NUR ---
RECEIVED PT RESTING COMFORTABLY IN BED. NO SIGNS OF ACUTE DISTRESS OR SOB NOTED. CALL LIGHT WITHIN REACH. BED LOCKED IN LOW POSITION. WILL CONTINUE TO MONITOR FOR SAFETY. WILL CONTINUE WITH PLAN OF CARE.
[2018-11-09] MEDS: CYANOCOBALAMIN 1,000 MCG TABLET PO SCH (09:28)
[2018-11-09] MEDS: CHOLECALCIFEROL 1,000 UNIT TABLET PO SCH (09:28)
[2018-11-09] MEDS: ASPIRIN 81 MG TAB.CHEW PO SCH (09:29)
[2018-11-09] MEDS: METOPROLOL SUCCINATE XL 25 MG TAB.SR.24H PO SCH (09:29)
[2018-11-09] MEDS: FLUOXETINE HCL 20 MG CAPSULE PO SCH ×2 (09:29→12:28)
[2018-11-09] MEDS: LITHIUM CARBONATE 300 MG CAPSULE PO SCH ×2 (09:30→20:35)
--- NOTE | 2018-11-09 09:35 | NUR ---
UR NOTE: Stamping Die Maker Bench faxed updated clinicals and ECT consultations from 2 referring psychiatrists (Dr. Abad & Dr. Burroughs) to Brad Coulter, Bulk Cooler Installer at [facility] [ EXT [phone]; FAX: [phone]]. Per Brad, pending approval of Dr. Abad as a consulting provider. cold storage worker to continue to follow up.
[2018-11-09] MEDS: SUMATRIPTAN SUCCINATE 50 MG TABLET PO PRN (09:46)
[2018-11-09 11:53] VITALS: BP 124/57
--- NOTE | 2018-11-09 12:10 | NUR ---
PT IS RESTING COMFORTABLY IN BED. PT AWAKE. PT ALERT AND ORIENTED X 3. PT DENIES PAIN AT THIS TIME. PT DENIES SUICIDAL IDEATION AND INTENT AT THIS TIME. PT IS PLEASANT AND COOPERATIVE. CALL LIGHT WITHIN REACH. PT IS MEDICATION COMPLIANT. SAFETY MEASURES IMPLEMENTED. WILL CONTINUE TO MONITOR.
[2018-11-09 16:20] VITALS: BP 132/73
--- NOTE | 2018-11-09 18:10 | NUR ---
PT RESTING IN BED COMFORTABLY. PT DENIES SUICIDAL IDEATION AND INTENT AT THIS TIME. PT DENIES PAIN AT THIS TIME. PT ALERT AND ORIENTED X 3. PT PLEASANT AND COOPERATIVE. BED LOCKED IN LOW POSITION. SAFETY MEASURES IMPLEMENTED. PT IS MEDICATION COMPLIANT. WILL GIVE REPORT TO INCOMING SHIFT ACCORDINGLY.
--- NOTE | 2018-11-09 19:20 | NUR ---
RECEIVED PATIENT LYING IN BED. AAOX4. IN NO ACUTE DISTRESS. DENIES ANY PAIN OR SOB. VS WNL. PATIENT REPORTED STILL FEELING A LITTLE DEPRESS BUT STATED "IT'S GETTING BETTER". DENIES SI/HI OR DELUSION. CALM AND PLEASANT. NEEDS ASSESEED AND ATTENDED TO. SAFETY MEASURE INITIATED. CONTINUE TO MONITOR.
--- NOTE | 2018-11-09 20:05 | NUR ---
Patient seen by Dr. Cunningham, wrote Rx for discharge tomorrow. Rx on patient chart.
[2018-11-09] MEDS: risperiDONE 0.25 MG TABLET PO SCH (20:34)
[2018-11-09] MEDS: TRAZODONE 50 MG TABLET PO SCH (20:34)
[2018-11-09] MEDS: CLONAZEPAM 0.5 MG TABLET PO SCH (20:35)
[2018-11-09] MEDS: VERAPAMIL 80 MG TABLET PO SCH (20:35)
[2018-11-09 20:54] VITALS: BP 108/62
--- NOTE | 2018-11-09 20:55 | NUR ---
DR VIRK AT BEDSIDE.
[2018-11-09] MEDS ORDERED: HYDROCODONE/APAP 5-325MG TABLET PO ONE (20:59)
[2018-11-09] MEDS ORDERED: TRAMADOL HCL 50 MG TABLET PO PRN (21:00)
--- NOTE | 2018-11-09 21:47 | NUR ---
PATIENT REFUSED TO TAKE TRAMADOL FOR PAIN, STATED THAT IT MAKES HER FEEL DRUNK AND DID NOT WANT TO TAKE IT. DR. VIRK MADE AWARE AND INSTRUCTED THIS NURSE TO GIVE NORCO INSTEAD AND AWARE THAT PATIENT IS ALLERGIC TO HYDROCODONE. PER PATIENT SHE ONLY GETS NAUSEATED WITH HYDROCODONE AND IS WILLING TO TRY TO TAKE NORCO. WILL PROVIDE NORCO PER ORDER.
[2018-11-10 05:00] VITALS: BP 97/54
--- NOTE | 2018-11-10 06:11 | NUR ---
PATIENT SLEPT APPROX. 8 HOURS.
--- NOTE | 2018-11-10 08:00 | NUR ---
Received pt. resting in bed alert oriented x4. Pt. denies SOB/ difficulty breathing. Pt. denies pain or discomfort. Pt. states she is feeling hopeful and better mentally. Pt. denies SI/ HI. Safety measures in place. Call light within reach. Will continue to monitor pt.
[2018-11-10] MEDS: CYANOCOBALAMIN 1,000 MCG TABLET PO SCH (08:21)
[2018-11-10] MEDS: LITHIUM CARBONATE 300 MG CAPSULE PO SCH (08:22)
[2018-11-10] MEDS: ASPIRIN 81 MG TAB.CHEW PO SCH (08:22)
[2018-11-10] MEDS: CHOLECALCIFEROL 1,000 UNIT TABLET PO SCH (08:22)
[2018-11-10] MEDS: METOPROLOL SUCCINATE XL 25 MG TAB.SR.24H PO SCH (08:22)
[2018-11-10] MEDS: FLUOXETINE HCL 20 MG CAPSULE PO SCH ×2 (08:22→14:24)
--- NOTE | 2018-11-10 12:00 | NUR ---
Discharge Note: Patient will be discharged home [[address], [address], [place] [address]; [place], [place]; Ph. [phone]] into the care of her friend Anel Godoy [[phone]] who will be providing transportation for patient at 12:00pm. Patient is alert and oriented x4, denying suicidal ideation, and aware and agreeable of discharge plan. Patient is scheduled for a medication management appointment on November 16, 2018 at 11:30am with Jennifer Harvey N.P. at [facility] [[address] [place] [address]]. Patient is also scheduled for a behavioral health appointment on November 25, 2018 at 11:15am with Anel Siegel LCSW at [facility] [[address], [place], [address]]. Patient was also provided with mental health resources including [facility] Line [ ] and the National Suicide Prevention Lifeline [ ].
[2018-11-10 12:20] VITALS: BP 115/62
--- NOTE | 2018-11-10 14:25 | NUR ---
Pt. discharged home with help of friend Anel in private car. All discharge papers signed. Prescription given to pt. Faxed prescription to [facility]. Pt. given all discharge papers. ID band removed and given to pt. by request and approval of charge nurse. Vital signs stable. Pt. stable.
== END 2018-11-10 14:25 | disposition home or self-care (01) | DRG 885 ==
LOC: ER 15:20 → GPSOV3 21:02 → GPS 11-01 07:39 → GPSOV3 11-05 16:41
PROVIDERS: ADMIT Psychiatry & Neurology Psychiatry; ATTEND Student in an Organized Health Care Education/Training Program
DX: F33.2 Major depressive disorder, recurrent severe without psychotic features (principal); F41.9 Anxiety disorder, unspecified; G47.00 Insomnia, unspecified; G43.909 Migraine, unspecified, not intractable, without status migrainosus; F41.0 Panic disorder [episodic paroxysmal anxiety]; E78.5 Hyperlipidemia, unspecified; Z87.891 Personal history of nicotine dependence; Z87.19 Personal history of other diseases of the digestive system; E04.1 Nontoxic single thyroid nodule; K80.20 Calculus of gallbladder without cholecystitis without obstruction; I07.1 Rheumatic tricuspid insufficiency; I10 Essential (primary) hypertension; D75.89 Other specified diseases of blood and blood-forming organs; Z87.81 Personal history of (healed) traumatic fracture; L98.8 Other specified disorders of the skin and subcutaneous tissue; G89.29 Other chronic pain; Z79.899 Other long term (current) drug therapy; M54.12 Radiculopathy, cervical region
CPT/HCPCS: 36415; 70030-TC; 71045; 80307; 83735; 84100; 84443; 85025; 85730; 87086; 93005; A4663; G0480; G0480-TC

== ENCOUNTER 2018-12-29 09:42 | Inpatient (IN) | payer OTHER ==
[~2018-12-29] VITALS: Ht 152.4 cm; Wt 60.3 kg
[~2018-12-29 09:42] MED LIST changes: +CODE1CAP24 PO; +FLUO20CA36 PO; -MIRT15TA PO; +SUMA100T PO; +VERA180C2 PO
[2018-12-29] MEDS ORDERED: LITH300C2 PO (09:55)
[2018-12-29] MEDS ORDERED: FLUO40CA8 PO (09:55)
[2018-12-29] MEDS ORDERED: METO-356 PO (10:02)
[2018-12-29 10:11] LABS: BASOPHILS # (AUTO) 0.1 K/uL (0.0-8.0); BASOPHILS % (AUTO) 0.9 % (0.0-2.0); EOSINOPHILS % (AUTO) 0.2 % (0.0-7.0); HEMOGLOBIN 13.7 g/dL (10.9-14.3); LYMPHOCYTES # (AUTO) 2.1 K/uL (20.0-40.0); LYMPHOCYTES % (AUTO) 27.8 % (20.5-51.5); MEAN CORPUSCULAR HEMOGLOBIN 32.6 uug (24.7-32.8); MEAN CORPUSCULAR HGB CONC 33 g/dL (32.3-35.6); MEAN CORPUSCULAR VOLUME 97.7 fL (75.5-95.3); MONOCYTES # (AUTO) 0.6 K/uL (2.0-10.0); MONOCYTES % (AUTO) 7.8 % (0.0-11.0); NEUTROPHILS # (AUTO) 4.9 K/uL (1.8-8.9); NEUTROPHILS % (AUTO) 63.3 % (38.5-71.5); PLATELET COUNT (AUTO) 286 K/uL (179-408); WHITE BLOOD COUNT (AUTO) 7.7 K/uL (3.8-11.8)
[2018-12-29 10:19] LABS: CARBON DIOXIDE 27 mmol/L (21-32); CHLORIDE 103 mmol/L (98-107); GLUCOSE 109 mg/dL (74-106); POTASSIUM 3.8 mmol/L (3.5-5.1); UREA NITROGEN, BLOOD 12 mg/dL (7-18)
[2018-12-29] MEDS ORDERED: CLON0.5T PO (10:22)
[2018-12-29] MEDS ORDERED: RISP0.5T5 PO (10:22)
[2018-12-29] MEDS ORDERED: TRAZ-182 PO (10:22)
[2018-12-29 10:23] LABS: ALANINE AMINOTRANSFERASE 21 U/L (14-59); ALKALINE PHOSPHATASE 86 U/L (50-136); ASPARTATE AMINOTRANSFERASE 16 U/L (15-37); BILIRUBIN,DIRECT 0.1 mg/dL (0.0-0.2); BILIRUBIN,TOTAL 0.3 mg/dL (0.2-1.0); ETHANOL < 3 MG/DL (0-0); TOTAL PROTEIN, SERUM 7.7 g/dL (6.4-8.2)
[2018-12-29 10:24] LABS: ACETAMINOPHEN < 2.0 ug/mL (10-30)
[2018-12-29 11:13] LABS: *BILIRUBIN,URIN NEGATIVE (NEGATIVE); *CLARITY,URINE SLIGHTLY CLOUDY (CLEAR); *COLOR,URINE YELLOW (YELLOW); *KETONES,URINE NEGATIVE (NEGATIVE); *UROBILINOGEN,URINE 0.2 E.U./dl (NORMAL); LEUKOCYTE ESTERASE ,URINE 2+ (NEGATIVE); NITRITE, URINE NEGATIVE (NEGATIVE); PH,URINE 5.5 (5.0-8.0); UGLUCOSE NEGATIVE (NEGATIVE)
[2018-12-29 11:21] LABS: *BLOOD, URINE TRACE INTACT (NEGATIVE)
[2018-12-29 11:24] LABS: *AMPHETAMINE, URINE NEGATIVE (NEGATIVE); *BARBITURATE, URINE POSITIVE (NEGATIVE); *CANNABINOID, URINE NEGATIVE (NEGATIVE); *COCCAINE, URINE NEGATIVE (NEGATIVE); *OPIATE, URINE NEGATIVE (NEGATIVE); *PHENCYCLIDINE SCREEN,URINE NEGATIVE (NEGATIVE)
[2018-12-29] MEDS ORDERED: CEphaleXIN 500 MG CAPSULE PO ONE (11:45)
[2018-12-29 11:48] LABS: BACTERIA,URINE NONE SEEN /HPF (NONE SEEN); MUCUS,URINE MODERATE /LPF (0-FEW); SQUAMOUS EPITHELIAL CELL,UR MODERATE /HPF (NONE SEEN); URINE AMORPHOUS URATE MODERATE /HPF
[2018-12-29] MEDS ORDERED: CEphaleXIN 500 MG CAPSULE ONE (11:49)
[2018-12-29 12:30] VITALS: BP 141/46
[2018-12-29] MEDS ORDERED: MAGNESIUM HYDROXIDE 30 ML LIQUID UDC PO PRN (12:30)
[2018-12-29] MEDS ORDERED: BLOOD SUGAR DIAGNOSTIC 1 EACH STRIP VI ONE (12:30)
[2018-12-29] MEDS ORDERED: MAG HYDROX/AL HYDROX/SIMETH 30 ML LIQUID UDC PO PRN (12:30)
[2018-12-29] MEDS ORDERED: TEMAZEPAM 7.5 MG CAPSULE PO PRN (12:30)
[2018-12-29] MEDS ORDERED: LORAZEPAM 1 MG TABLET PO PRN (12:30)
[2018-12-29 15:53] VITALS: BP 95/49
[2018-12-29] MEDS ORDERED: CLONIDINE HCL 0.1 MG TABLET PO PRN (20:30)
[2018-12-29] MEDS ORDERED: SUMATRIPTAN SUCCINATE 100 MG PO SCH (20:30)
[2018-12-29] MEDS: CEphaleXIN 500 MG CAPSULE PO SCH (20:54)
[2018-12-29] MEDS: LAMOTRIGINE 25 MG TABLET PO SCH (20:54)
[2018-12-29] MEDS: CLONAZEPAM 0.5 MG TABLET PO SCH (20:55)
[2018-12-29] MEDS: TRAZODONE 100 MG TABLET PO SCH (20:55)
[2018-12-29 21:03] VITALS: BP 110/41
[2018-12-29] MEDS: SUMATRIPTAN SUCCINATE 50 MG TABLET PO PRN (21:26)
[2018-12-30] MEDS: CEphaleXIN 500 MG CAPSULE PO SCH ×3 (05:51→21:22)
[2018-12-30 07:30] VITALS: BP 121/58
[2018-12-30] MEDS: FLUVOXAMINE MALEATE 25 MG TABLET PO SCH ×3 (08:55→17:03)
[2018-12-30] MEDS: CLONAZEPAM 0.5 MG TABLET PO SCH ×2 (08:55→21:21)
[2018-12-30] MEDS: LAMOTRIGINE 25 MG TABLET PO SCH ×2 (08:56→21:22)
[2018-12-30 16:25] VITALS: BP 128/51
[2018-12-30 19:52] VITALS: BP 103/52
[2018-12-30] MEDS: TRAZODONE 100 MG TABLET PO SCH (21:25)
[2018-12-30] MEDS: SUMATRIPTAN SUCCINATE 50 MG TABLET PO PRN (21:54)
[2018-12-31] MEDS: CEphaleXIN 500 MG CAPSULE PO SCH ×3 (05:56→21:02)
[2018-12-31 07:30] VITALS: BP 104/60
[2018-12-31] MEDS: CLONAZEPAM 0.5 MG TABLET PO SCH ×2 (08:27→21:03)
[2018-12-31] MEDS: LAMOTRIGINE 25 MG TABLET PO SCH ×2 (08:27→22:09)
[2018-12-31] MEDS: FLUVOXAMINE MALEATE 25 MG TABLET PO SCH ×3 (08:27→17:34)
[2018-12-31 16:08] VITALS: BP 90/50
[2018-12-31] MEDS: TRAZODONE 100 MG TABLET PO SCH (21:03)
[2019-01-01 05:17] VITALS: BP 115/60
[2019-01-01] MEDS: CEphaleXIN 500 MG CAPSULE PO SCH ×3 (05:42→22:33)
[2019-01-01] MEDS: LAMOTRIGINE 25 MG TABLET PO SCH ×2 (08:28→22:45)
[2019-01-01] MEDS: CLONAZEPAM 0.5 MG TABLET PO SCH ×2 (08:28→22:32)
[2019-01-01] MEDS: FLUVOXAMINE MALEATE 25 MG TABLET PO SCH ×3 (09:33→16:00)
[2019-01-01 11:00] VITALS: BP 118/58
[2019-01-01 19:42] VITALS: BP 96/49
[2019-01-01 22:30] VITALS: BP 113/56
[2019-01-01] MEDS: TRAZODONE 100 MG TABLET PO SCH (22:31)
[2019-01-02] MEDS: CEphaleXIN 500 MG CAPSULE PO SCH ×3 (06:06→21:43)
[2019-01-02] MEDS: FLUVOXAMINE MALEATE 25 MG TABLET PO SCH ×3 (09:10→17:02)
[2019-01-02] MEDS: CLONAZEPAM 0.5 MG TABLET PO SCH ×2 (09:11→20:48)
[2019-01-02] MEDS: LAMOTRIGINE 25 MG TABLET PO SCH ×2 (09:11→20:48)
[2019-01-02 11:29] VITALS: BP 103/55
[2019-01-02] MEDS: SUMATRIPTAN SUCCINATE 50 MG TABLET PO PRN (13:38)
[2019-01-02 16:00] VITALS: BP 133/40
[2019-01-02 20:02] VITALS: BP 101/39
[2019-01-02] MEDS: TRAZODONE 100 MG TABLET PO SCH (20:49)
[2019-01-03] MEDS: CEphaleXIN 500 MG CAPSULE PO SCH ×3 (06:11→22:03)
[2019-01-03 06:41] LABS: POTASSIUM 4.2 mmol/L (3.5-5.1)
[2019-01-03 06:42] LABS: BILIRUBIN,TOTAL 0.2 mg/dL (0.1-1.0); CREATININE 0.8 mg/dL (0.6-1.3); PHOSPHOROUS 3.3 mg/dL (2.5-4.9)
[2019-01-03 06:43] LABS: MAGNESIUM 2.1 mg/dL (1.8-2.4); TOTAL PROTEIN, SERUM 6.4 g/dL (6.4-8.2)
[2019-01-03 07:31] LABS: HEMATOCRIT 38.7 % (37-47); HEMOGLOBIN 12.8 G/DL (12.0-16.0); MEAN CORPUSCULAR HEMOGLOBIN 32.5 UUG (27.0-31.0); MEAN CORPUSCULAR HGB CONC 33 g/dL (32.0-37.0); MEAN CORPUSCULAR VOLUME 98.3 FL (81.0-99.0); PLATELET COUNT (AUTO) 231 K/UL (150-450); RED BLOOD CELL COUNT(AUTO) 3.93 MIL/UL (4.2-5.4); WHITE BLOOD COUNT (AUTO) 5.3 K/UL (4.0-11.2)
[2019-01-03 07:32] LABS: EOSINOPHILS % (AUTO) 1.4 % (0.0-7.0); LYMPHOCYTES # (AUTO) 1.8 K/UL (0.8-4.8); LYMPHOCYTES % (AUTO) 34.4 % (20.5-51.5); MONOCYTES # (AUTO) 0.4 K/UL (0.1-1.30); MONOCYTES % (AUTO) 7.3 % (0.0-11.0); NEUTROPHILS % (AUTO) 55.9 % (38.5-71.5)
[2019-01-03 07:33] LABS: BASOPHILS # (AUTO) 0.1 K/uL (0.0-8.0); EOSINOPHILS # (AUTO) 0.1 K/uL (0.0-0.7)
[2019-01-03] MEDS: CLONAZEPAM 0.5 MG TABLET PO SCH ×2 (08:51→20:35)
[2019-01-03] MEDS: LAMOTRIGINE 25 MG TABLET PO SCH ×2 (08:52→20:36)
[2019-01-03] MEDS: FLUVOXAMINE MALEATE 25 MG TABLET PO SCH ×2 (08:52→16:13)
[2019-01-03 12:11] VITALS: BP 122/57
[2019-01-03 16:12] VITALS: BP 107/40
[2019-01-03] MEDS: SUMATRIPTAN SUCCINATE 50 MG TABLET PO PRN (16:13)
[2019-01-03] MEDS: MAGNESIUM HYDROXIDE 30 ML LIQUID UDC PO PRN (16:13)
[2019-01-03 20:01] VITALS: BP 106/48
[2019-01-03] MEDS: TRAZODONE 100 MG TABLET PO SCH (20:36)
[2019-01-03] MEDS: FLUVOXAMINE MALEATE 50 MG TABLET PO SCH (20:38)
[2019-01-04] MEDS: LAMOTRIGINE 25 MG TABLET PO SCH ×2 (08:01→20:27)
[2019-01-04] MEDS: CLONAZEPAM 0.5 MG TABLET PO SCH ×2 (08:01→20:27)
[2019-01-04] MEDS: FLUVOXAMINE MALEATE 25 MG TABLET PO SCH ×2 (08:01→16:43)
[2019-01-04 11:44] VITALS: BP 113/61
[2019-01-04 15:58] VITALS: BP 109/55
[2019-01-04] MEDS: MAGNESIUM HYDROXIDE 30 ML LIQUID UDC PO PRN (18:42)
[2019-01-04 20:02] VITALS: BP 107/50
[2019-01-04] MEDS: FLUVOXAMINE MALEATE 50 MG TABLET PO SCH (20:27)
[2019-01-04] MEDS: TRAZODONE 100 MG TABLET PO SCH (20:28)
[2019-01-04] MEDS ORDERED: DOCUSATE SODIUM 100 MG CAPSULE PO SCH (21:00)
[2019-01-05] MEDS: CLONAZEPAM 0.5 MG TABLET PO SCH (08:30)
[2019-01-05] MEDS: LAMOTRIGINE 25 MG TABLET PO SCH (08:31)
[2019-01-05] MEDS: FLUVOXAMINE MALEATE 25 MG TABLET PO SCH (08:31)
[2019-01-05] MEDS: SUMATRIPTAN SUCCINATE 50 MG TABLET PO PRN (08:52)
[2019-01-05 11:09] LABS: *EBV AB VCA IGG 87.8 U/mL (0.0-17.9); *EBV AB VCA IGM <36.0 U/mL (0.0-35.9)
[2019-01-05 11:43] VITALS: BP 130/67
== END 2019-01-05 15:26 | disposition home health service (06) | DRG 885 ==
LOC: ER 09:43 → GPS 11:54 → GPSOV3 12-31 19:45
PROVIDERS: ADMIT Psychiatry & Neurology Psychiatry; ATTEND Internal Medicine
DX: F33.3 Major depressive disorder, recurrent, severe with psychotic symptoms (principal); N39.0 Urinary tract infection, site not specified; D68.59 Other primary thrombophilia; F41.9 Anxiety disorder, unspecified; Z87.891 Personal history of nicotine dependence; J44.9 Chronic obstructive pulmonary disease, unspecified; Z74.09 Other reduced mobility; E78.5 Hyperlipidemia, unspecified; M50.30 Other cervical disc degeneration, unspecified cervical region; M51.37 Other intervertebral disc degeneration, lumbosacral region; I11.9 Hypertensive heart disease without heart failure; Z79.899 Other long term (current) drug therapy; K56.41 Fecal impaction; D75.89 Other specified diseases of blood and blood-forming organs; Z87.19 Personal history of other diseases of the digestive system; Z86.39 Personal history of other endocrine, nutritional and metabolic disease; Z87.81 Personal history of (healed) traumatic fracture
CPT/HCPCS: 36415; 70030-TC; 74018; 80307; 83605; 83690; 83735; 84100; 85025; 87086; A4663; G0480; G0480-TC